=== PATIENT | female | born 1975 | race Hispanic/Latino ===

== ENCOUNTER 2022-04-02 14:19 | Emergency (ER) | payer BC, OTHER | END 2022-04-02 15:49 | disposition short-term general hospital (02) | LOC: BURERS 14:19 | DX: I82.4Z1 Acute embolism and thrombosis of unspecified deep veins of right distal lower extremity (principal); I10 Essential (primary) hypertension; E78.5 Hyperlipidemia, unspecified; E03.9 Hypothyroidism, unspecified | CPT/HCPCS: 36415; 85379; 99284 ==